=== PATIENT | male | born 1990 | race Two or more races ===

== ENCOUNTER 2018-11-07 21:07 | Emergency (ER) | payer SELFPAY ==
[2018-11-07] MEDS ORDERED: HYDROCODONE/ACETAMINOPHEN 5-325 MG TABLET PO ONE (21:32)
[2018-11-07] MEDS ORDERED: LIDOCAINE 1%/EPINEPHRINE INJ 20 ML VIAL INJ ONE (21:32)
[2018-11-07] MEDS ORDERED: DIPH/PERTUSS(ACELL)/TETANUS VAC/PF 0.5 ML SYR (>=10YO) IM ONE (21:32)
--- NOTE | 2018-11-07 21:34 | ER Document Report ---
HPI - HPI Patient complains to provider of: Leg laceration Time Seen by Provider: 11/07/18 21:22 Onset: Just prior to arrival Onset/Duration: Sudden Quality of pain: Achy Pain Level: 2 Context: Patient states that he fell landing on a rock cutting his left lower leg. Patient's tetanus immunization is not currently up-to-date. Associated Symptoms: Other - Leg laceration Exacerbated by: Movement Relieved by: Denies Similar symptoms previously: No Recently seen / treated by doctor: No - ROS ROS below otherwise negative: Yes Systems Reviewed and Negative: Yes All other systems reviewed and negative - NEURO Neurology: DENIES: Weakness - REPRODUCTIVE Reproductive: DENIES: : - MUSCULOSKELETAL Musculoskeletal: REPORTS: Extremity pain - DERM Skin Problems: Laceration Past Medical History - General Information source: Patient - Social History Smoking Status: Never Smoker Frequency of alcohol use: None Drug Abuse: None Family History: Reviewed & Not Pertinent - Medical History Medical History: Negative Surgical Hx: Negative Vertical Provider Document - CONSTITUTIONAL Agree With Documented VS: Yes Exam Limitations: No Limitations General Appearance: WD/WN, No Apparent Distress - INFECTION CONTROL TRAVEL OUTSIDE OF THE [place] IN LAST 30 DAYS: No - HEENT HEENT: Atraumatic, Normocephalic - NECK Neck: Normal Inspection - RESPIRATORY Respiratory: No Respiratory Distress - MUSCULOSKELETAL/EXTREMETIES Musculoskeletal/Extremeties: MAEW, FROM - NEURO Level of Consciousness: Awake, Alert, Appropriate Motor/Sensory: No Motor Deficit - DERM Integumentary: Warm, Dry, Laceration - 8 cm lac to LLE Course - Vital Signs Vital signs: Temp Pulse Resp BP Pulse Ox 98.5 F 79 16 125/62 99 11/07/18 21:15 11/07/18 21:15 11/07/18 21:15 11/07/18 21:15 11/07/18 21:15 Procedures - Laceration/Wound Repair Left Leg Wound length (cm): 8 Wound's Depth, Shape: Linear Laceration pre-procedure: Shur-Clens applied Anesthetic type: 1% Lidocaine w/epi Wound explored: Clean Wound Debrided: Minimal Wound Repaired With: Sutures Suture Size/Type: 4:0, Nylon Number of Sutures: 10 Layer Closure?: No Post-procedure wound care: Sterile dressing applied Post-procedure NV exam normal: Yes Complications: No Adult Front & Back picture: 1 - lac Discharge - Discharge Clinical Impression: Leg laceration Qualifiers: Encounter type: initial encounter Laterality: left Qualified Code(s): S81.812A - Laceration without foreign body, left lower leg, initial encounter Disposition: HOME, SELF-CARE Instructions: Laceration Care ([facility]), Tetanus Immunization Given ([facility]) Additional Instructions: Return immediately for any new or worsening symptoms Followup with your primary care provider, call tomorrow to make a followup appointment Suture removal in 12 days Prescriptions: Naproxen [Naprosyn 250 Nmg Tablet] 1 tab PO BID #14 tablet Referrals: [facility] [Provider Group] - Follow up as needed Print Language: Urdu
--- NOTE | 2018-11-07 22:03 | RADIOLOGY REPORT (SQ) ---
2 VIEWS OF THE LEFT TIBIA/FIBULA HISTORY: Leg laceration. Fall. COMPARISON: None. FINDINGS: The bone mineralization is normal. No acute fracture is seen. The joint spaces are preserved. Mild soft tissue swelling overlying the distal left leg. IMPRESSION: No acute fracture.
[2018-11-07 22:49] VITALS: BP 116/62
== END 2018-11-07 22:51 | disposition home or self-care (01) ==
LOC: ER 21:07
DX: S81.812A Laceration without foreign body, left lower leg, initial encounter (principal); W19.XXXA Unspecified fall, initial encounter; Z23 Encounter for immunization
CPT/HCPCS: 99283; 90471; 73590; 90715; 12004; J3490